=== PATIENT | female | born 1990 | race Caucasian/White ===

== ENCOUNTER 2016-05-23 17:08 | Emergency (ER) | payer OTHER ==
[~2016-05-23] VITALS: Wt 113.5 kg
[~2016-05-23 17:08] MED LIST: PREN1TAB62 PO
[2016-05-23] MEDS ORDERED: IBUPROFEN 800 MG TAB PO ONE (18:30)
--- NOTE | 2016-05-23 19:20 | RADRPT ---
PROCEDURE: XR Wrist. CLINICAL INDICATION: Injury TECHNIQUE: AP, lateral and oblique views of the left wrist were performed. COMPARISON: No prior studies are available for comparison. FINDINGS: Soft tissue swelling. No fracture or dislocation is seen. There is the suggestion of a 1 mm negati ve ulnar variance. IMPRESSION: Soft tissue swelling. No fracture seen. RPTAT: HJES .Derek Morfin MD, MD Date Time Electronically viewed and signed by .Derek Morfin MD, on 05/23/2016 19:20 .S/
--- NOTE | 2016-05-23 19:21 | RADRPT ---
PROCEDURE: XR Hand. CLINICAL INDICATION: Injury TECHNIQUE: Three views of the left hand were obtained. COMPARISON: No prior studies are available for comparison. FINDINGS: The bones of the hand appear intact, with no evidence of fracture, dislocation, or subluxation. The joint spaces are preserved. Bone mineralization is normal. No significant soft tissue swelling is se en. IMPRESSION: 1. Unremarkable left hand x-ray series. 2. No acute fracture or dislocation is seen. RPTAT: HJES .Derek Morfin MD, Date Time Electronically viewed and signed by .Derek Morfin MD, on 05/23/2016 19:21 .S/
[2016-05-23] MEDS ORDERED: IBUP800T25 PO (20:14)
[2016-05-23 20:46] VITALS: BP 136/68; PULSE 62; RESP 16; TEMP 98.4
--- NOTE | 2016-05-23 21:49 | ERD ---
ER Documentation Chief Complaint Date/Time DATE: 05/23/16 TIME: 21:46 Chief Complaint LEFT WRIST PAIN S/P [facility] F[facility] x 2 days ago HPI 26-year-old female with with a past medical history of asthma presents the ED stating that she had a mechanical fall, slipped and fell in the bathtub 2 days ago. States that she is try to catch herself with her left hand and started to have left hand pain. States that she has been taking Advil with slight relief of her pain. Reports that she is right-handed. Denies any fever, chills, loss of sensation, loss of range of motion, chest pain, shortness of breath, abdominal pain. Denies any loss of consciousness. Denies any head or neck injuries. ROS All systems reviewed and are negative except as per history of present illness. Medications Home Meds Active Scripts Ibuprofen* (Motrin*) 800 Mg Tab, 800 MG PO Q6, #30 TAB Prov:THOMAS MORALES PA-C 05/23/16 Reported Medications Vit-Iron Fumarate-FA ( Vitamin Tablet) 1 Each Tablet, 1 TAB PO DAILY, TAB 12/25/15 Allergies Allergies: Coded Allergies: amoxicillin (Verified Allergy, Severe, RASH, 12/25/15) PMhx/Soc History of Surgery: Yes (DENTAL SX) Anesthesia Reaction: No Hx Neurological Disorder: No Hx Respiratory Disorders: No Hx Cardiac Disorders: No Hx Psychiatric Problems: No Hx Miscellaneous Medical Probl: No Hx Alcohol Use: Yes Hx Substance Use: No Hx Tobacco Use: Yes Smoking Status: Current some day smoker Physical Exam Vitals Vital Signs Date Time Temp Pulse Resp B/P Pulse Ox O2 Delivery O2 Flow Rate FiO2 05/23/16 20:46 98.4 62 16 136/68 100 Room Air 05/23/16 17:12 97.9 92 18 130/71 98 Physical Exam Const: [id number], well-nourished. In no acute distress. Head: Atraumatic, normocephalic Eyes: Normal Conjunctiva without injection. No purulent discharge. PERRLA. EOMI ENT: Normal external ear, nose, mouth. No drooling. No trismus. Neck: No cervical midline tenderness. Full range of motion. No meningismus. No cervical lymphadenopathy. No JVD. Resp: Clear to auscultation bilaterally. No wheezing, rhonchi, rales, or crackles. No accessory muscle use. No retractions. Cardio: Regular rate and rhythm. No murmurs, rubs or gallops. Abd: Soft, non tender, non distended. Normal bowel sounds. Skin: Normal skin turgor. No petechiae or rashes Back: No midline tenderness. No CVA tenderness. Ext: No cyanosis, or edema. Tenderness to palpation of the distal radius and ulna. Left snuffbox tenderness. Limited range of motion due to pain. Distal pulses intact bilaterally. Cap refill less than 2 seconds. Neur: Awake and alert. Normal gait. Normal coordination. Cranial Nerves II- VII intact. Normal finger to nose. Muscle strength 5/5. Sensation intact. Psych: Normal Mood and Affect Results 24 hrs Current Medications Medications (Trade) Dose Ordered Sig/Carlos Alberto Route PRN Reason Start Time Stop Time Status Last Admin Dose Admin Ibuprofen (Motrin) 800 mg ONCE ONCE PO 05/23/16 18:30 05/23/16 18:31 DC 05/23/16 18:46 Procedures/MDM 26-year-old female with a past medical history of asthma presents the ED complaining of left wrist pain after a status post mechanical fall that occurred 2 days ago. Patient is afebrile nontoxic appearing. Patient has normal vital signs. A left wrist, left hand x-ray was ordered to further evaluate patient. Patient was treated here with ibuprofen with improvement of her pain. PROCEDURE: XR Wrist. CLINICAL INDICATION: Injury TECHNIQUE: AP, lateral and oblique views of the left wrist were performed. COMPARISON: No prior studies are available for comparison. FINDINGS: Soft tissue swelling. No fracture or dislocation is seen. There is the suggestion of a 1 mm negative ulnar variance. IMPRESSION: Soft tissue swelling. No fracture seen. PROCEDURE: XR Hand. CLINICAL INDICATION: Injury TECHNIQUE: Three views of the left hand were obtained. COMPARISON: No prior studies are available for comparison. FINDINGS: The bones of the hand appear intact, with no evidence of fracture, dislocation, or subluxation. The joint spaces are preserved. Bone mineralization is normal. No significant soft tissue swelling is seen. IMPRESSION: 1. Unremarkable left hand x-ray series. 2. No acute fracture or dislocation is seen. Patient does have snuffbox tenderness of the left hand. At this time a scaphoid fracture cannot be ruled out. Therefore patient will be placed in a thumb spica splint. Splint Assessment: Neurovascularly intact pre and post splint placement with good fit. Patient's extremity symptoms have stabilized while they have been evaluated in the department and are appropriate for outpatient follow up. No evidence dislocations, compartment syndrome, neurologic injury, vascular injury, open joint, open fracture, tendon laceration , septic arthritis, osteomyelitis, DVT, foreign body, or other emergent conditions. Discharge medications: Ibuprofen Follow up with primary care physician in 1-2 days. Instructed patient to return to the ED sooner for any worsening symptoms. Patient's questions were answered. Patient understood and agreed with discharge plan. Patient discharged stable. Departure Diagnosis: Primary Impression: Hand injury Encounter type: initial encounter Laterality: left Qualified Code: S69.92XA - Hand injury, left, initial encounter Additional Impression: Wrist injury Encounter type: initial encounter Laterality: left Qualified Code: S69.92XA - Wrist injury, left, initial encounter Condition: Stable Patient Instructions: Fracture, Hand (Closed), Sprain Hand Referrals: [facility] YOU HAVE RECEIVED A MEDICAL SCREENING EXAM AND THE RESULTS INDICATE THAT YOU DO NOT HAVE A CONDITION THAT REQUIRES URGENT TREATMENT IN THE EMERGENCY DEPARTMENT. FURTHER EVALUATION AND TREATMENT OF YOUR CONDITION CAN WAIT UNTIL YOU ARE SEEN IN YOUR DOCTORS OFFICE WITHIN THE NEXT 1-2 DAYS. IT IS YOUR RESPONSIBILITY TO MAKE AN APPOINTMENT FOR FOLOW-UP CARE. IF YOU HAVE A PRIMARY DOCTOR --you should call your primary doctor and schedule an appointment IF YOU DO NOT HAVE A PRIMARY DOCTOR YOU CAN CALL OUR PHYSICIAN REFERRAL HOTLINE AT IF YOU CAN NOT AFFORD TO SEE A PHYSICIAN YOU CAN CHOSE FROM THE FOLLOWING [facility] [address] [facility]. [facility] [place] [address] [facility]. [facility] [address] [facility] [facility] [address] [facility] [address] [facility] [facility]. [address] [facility]. [facility] YOU HAVE RECEIVED A MEDICAL SCREENING EXAM AND THE RESULTS INDICATE THAT YOU DO NOT HAVE A CONDITION THAT REQUIRES URGENT TREATMENT IN THE EMERGENCY DEPARTMENT. FURTHER EVALUATION AND TREATMENT OF YOUR CONDITION CAN WAIT UNTIL YOU ARE SEEN IN YOUR DOCTORS OFFICE WITHIN THE NEXT 1-2 DAYS. IT IS YOUR RESPONSIBILITY TO MAKE AN APPOINTMENT FOR FOLOW-UP CARE. IF YOU HAVE A PRIMARY DOCTOR --you should call your primary doctor and schedule and appointment IF YOU DO NOT HAVE A PRIMARY DOCTOR YOU CAN CALL OUR PHYSICIAN REFERRAL HOTLINE AT . IF YOU CAN NOT AFFORD TO SEE A PHYSICIAN YOU CAN CHOSE FROM THE FOLLOWING [facility] INSTITUTIONS[facility] [address] [place] [address] [facility] [address] [place] [address] [facility] [address] [place] [address] [facility]ENT [facility]/SPECIALTIES Additional Instructions: FOLLOW UP WITH YOUR PRIMARY CARE PHYSICIAN TOMORROW. Return to this facility if you are not improving as expected. THOMAS MORALES PA-C May 23, 2016 21:49
== END 2016-05-23 20:47 | disposition home or self-care (01) ==
LOC: FTE 17:08
DX: S69.92XA Unspecified injury of left wrist, hand and finger(s), initial encounter (principal); F17.210 Nicotine dependence, cigarettes, uncomplicated; W18.2XXA Fall in (into) shower or empty bathtub, initial encounter; Y92.9 Unspecified place or not applicable
CPT/HCPCS: 29125; 73110; 73130; Z7502; Z7610